=== PATIENT | male | born 1945 | race Hispanic/Latino ===

== ENCOUNTER → 2020-10-17 | Outpatient (CLI) | payer OTHER | END | disposition home or self-care (01) | LOC: RAH 08:00 | PROVIDERS: ATTEND Internal Medicine | DX: R22.1 Localized swelling, mass and lump, neck (principal); E04.1 Nontoxic single thyroid nodule | CPT/HCPCS: 76536 ==

== ENCOUNTER → 2020-11-17 | Outpatient (CLI) | payer OTHER ==
[~2020-11-17] MED LIST: IOHEXOL 350 MG/ML 100ML INFUS..BTL IV ONE
== END | disposition home or self-care (01) ==
LOC: RAH 12:32
PROVIDERS: ATTEND Otolaryngology
DX: C78.2 Secondary malignant neoplasm of pleura (principal); C32.9 Malignant neoplasm of larynx, unspecified; J91.0 Malignant pleural effusion; J98.11 Atelectasis; R59.9 Enlarged lymph nodes, unspecified
CPT/HCPCS: 70491; 71260; Q9967

== ENCOUNTER 2021-09-19 14:42 | Emergency (ER) | payer OTHER ==
[~2021-09-19] VITALS: Ht 162.6 cm; Wt 58.1 kg
[2021-09-19 16:51] LABS: BASOPHILS % (AUTO) 0.5 % (0.0-5.0); HEMATOCRIT 31.4 % (42-54); LYMPHOCYTES % (AUTO) 8.4 % (21.0-51.0); MEAN CORPUSCULAR HEMOGLOBIN 30.9 pg (27.0-33.0); MEAN CORPUSCULAR HGB CONC 34.1 g/dL (32.0-36.0); MEAN CORPUSCULAR VOLUME 90.8 fL (79-99); MONOCYTES % (AUTO) 10.9 % (3.0-13.0); NEUTROPHILS % (AUTO) 79.8 % (40.0-77.0); PLATELET COUNT (AUTO) 132 K/uL (130-400); RED BLOOD CELL COUNT(AUTO) 3.46 MIL/uL (4.50-6.20); RED CELL DISTRIBUTION WIDTH 14.5 % (11.0-15.5); WHITE BLOOD COUNT (AUTO) 5.6 K/uL (4.8-10.8)
[2021-09-19 16:56] LABS: CREATININE 0.7 mg/dL (0.5-1.5)
[2021-09-19 16:58] LABS: APPEARANCE,URINE Clear (CLEAR); BILIRUBIN,URINE Negative (NEGATIVE); COLOR,URINE Yellow (YELLOW); GLUCOSE, URINE (UA) Negative (NEGATIVE); KETONES,URINE Trace mg/dL (NEGATIVE); LEUKOCYTE ESTERASE ,URINE Negative (NEGATIVE); NITRATE,URINE Negative (NEGATIVE); OCCULT BLOOD,URINE Negative (NEGATIVE); PH,URINE 5.5 (5.0-8.0); PROTEIN,URINE Trace mg/dL (NEGATIVE)
[2021-09-19 17:01] LABS: ALBUMIN 3.3 g/dL (3.5-5.0); BILIRUBIN,TOTAL 0.3 mg/dL (0.2-1.0); TOTAL PROTEIN, SERUM 6.8 g/dL (6.0-8.3)
[2021-09-19 17:05] LABS: PROTHROMBIN TIME 10.9 SEC (9.6-11.6)
[2021-09-19 17:07] LABS: PARTIAL THROMBOPLASTIN TIME 28.2 SEC (26.3-35.5)
[2021-09-19 17:13] LABS: BACTERIA,URINE Rare /HPF (None Seen); MUCUS,URINE Few LPF (None Seen); RBC,URINE 0-1 /HPF (0-1); SQUAMOUS EPITHELIAL CELL,UR Rare /HPF (0-2); WBC,URINE 0-1 /HPF (0-1)
[2021-09-19] MEDS ORDERED: ACET-66 PO (18:34)
[2021-09-19] MEDS ORDERED: DOXY100T2 PO (18:34)
[2021-09-19 18:58] VITALS: BP 108/53
== END 2021-09-19 19:02 | disposition home or self-care (01) ==
LOC: EDH 14:52
DX: B34.9 Viral infection, unspecified (principal); Z20.822 Contact with and (suspected) exposure to COVID-19; E11.9 Type 2 diabetes mellitus without complications; E78.00 Pure hypercholesterolemia, unspecified; Z98.890 Other specified postprocedural states
CPT/HCPCS: 36415; 80053; 81001; 82550; 83605; 84484; 85025; 85610; 85730; 87040 ×2; 87088; 87635; 87804 ×2; 99283; C9803